=== PATIENT | male | born 1965 | race Caucasian/White ===

== ENCOUNTER 2021-02-08 20:47 | Emergency (ER) | payer BC ==
[2021-02-08 21:44] LABS: HEMOGLOBIN 9.5 gm/dl (14.0-17.5); RED BLOOD COUNT 3.09 M/UL (4.20-5.50); WHITE BLOOD COUNT 16.8 K/UL (4.5-11.0)
[2021-02-08 22:00] LABS: BUN/CREATININE RATIO 59 (0-10)
[2021-02-09 00:47] LABS: HEMOGLOBIN 8.5 gm/dl (14.0-17.5); RED BLOOD COUNT 2.71 M/UL (4.20-5.50); WHITE BLOOD COUNT 14.5 K/UL (4.5-11.0)
== END 2021-02-09 02:50 | disposition short-term general hospital (02) ==
LOC: ER1 20:47
PROVIDERS: Family Medicine
DX: K92.2 Gastrointestinal hemorrhage, unspecified (principal); E11.9 Type 2 diabetes mellitus without complications; F17.200 Nicotine dependence, unspecified, uncomplicated; Z20.822 Contact with and (suspected) exposure to COVID-19
CPT/HCPCS: 0240U; 71045; 80053; 81001; 82962; 85025; 85027; 85610; 86850; 86900; 86901; 86920; 93005; 96374; 96375; 96376; 99285; C9113; J2405; J7030